=== PATIENT | female | born 1990 | race Caucasian/White ===

== ENCOUNTER 2020-02-12 07:01 | Inpatient (IN) | payer OTHER ==
[2020-02-12] MEDS ORDERED: Misoprostol 50 MCG (1/2 of 100 MCG) Tab VAG ONE ×2 (08:03→12:30)
[2020-02-12] MEDS ORDERED: Calcium Carbonate 500 MG Tab.Chew PO PRN (08:48)
[2020-02-12] MEDS ORDERED: Sodium Chloride 0.9% 10 ML Syringe FLUSH PRN (08:48)
[2020-02-12] MEDS ORDERED: Ondansetron 4 MG/2 ML SDV IV PRN (08:48)
--- NOTE | 2020-02-12 09:05 | PCM.LDHP ---
L&D History of Present Illness - General Date of Service: 02/12/20 Admit Problem/Dx: Patient Status Order with Admit Dx/Problem 02/12/20 08:48 Patient Status [ADT] Routine Admission Diagnosis/Problem Admission Diagnosis/Problem Term Source of Information: Patient History Limitations: Reports: No Limitations - History of Present Illness Introduction:: 02/12/20 Netta is a 29 yo who is 38 0/7 weeks here for induction of labor. She is being induced for possible cholestasis in . She began having i tching on the soles of her feet, abdomen, and her hands in January. She has needed to take Vistaril every night to sleep. She only has itching at night but it wakes her up. With this continued symptom we have decided to induce for the risk of cholestasis. She has had normal BPP's and NST's. The only other complication in is that there is a 2 vessel cord. She is GBS negative, O positive, all STI's are negative. They are anticipating a boy. 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: 1 LMP (Approximate): Musculoskeletal History: Reports: None Other Musculoskeletal History: Hx: bunyon foot removed - Infectious Disease History Infectious Disease History: Reports: C-Difficile - Past Surgical History Musculoskeletal Surgical History: Reports: None Dermatological Surgical History: Reports: None Social & Family History - Family History Family Medical History: No Pertinent Family History - Tobacco Use Tobacco Use Status *Q: Never Tobacco User Second Hand Smoke Exposure: No - Caffeine Use Caffeine Use: Reports: Coffee, Soda - Recreational Drug Use Recreational Drug Use: No H&P Review of Systems - Review of Systems: Review Of Systems: See Below General: Reports: No Symptoms HEENT: Reports: No Symptoms Pulmonary: Reports: No Symptoms Cardiovascular: Reports: No Symptoms Gastrointestinal: Reports: No Symptoms Genitourinary: Reports: No Symptoms Musculoskeletal: Reports: No Symptoms Skin: Reports: No Symptoms Psychiatric: Reports: No Symptoms Neurological: Reports: No Symptoms Hematologic/Lymphatic: Reports: No Symptoms Immunologic: Reports: No Symptoms L&D Exam - Exam Exam: See Below - Vital Signs Vital Signs: Last Vital Signs Temp 35.5 C L 02/12/20 08:14 Pulse 92 02/12/20 07:24 Resp 18 02/12/20 07:24 BP 118/74 02/12/20 07:24 Pulse Ox 97 02/12/20 07:24 Weight: 80.286 kg - OB Specific Contraction Intensity: intermittent Movement: Active Heart Tones: Present Heart Tones per Min: 135 Heart Rate (FHR) Variability: Moderate (6-25 bmp) Presentation: Vertex Estimated Weight: 7.5 lbs - Willis Score Willis Score Cervix Position: Midposition Willis Score Consistency: Soft Willis Score Effacement: 31-50% Willis Score Dilation: 1-2 cm Willis Score 's Station: -2 Willis Score Total: 6 - Exam General: Alert, Oriented HEENT: PERRLA, Conjunctiva Clear, Hearing Intact, Mucosa Moist & [place], Nares Patent, Normal Nasal Septum, Posterior Pharynx Clear, Pupils Equal, Pupils Reactive Neck: Supple, Trachea Midline Lungs: Clear to Auscultation, Normal Respiratory Effort Cardiovascular: Regular Rate, Regular Rhythm GI/Abdominal Exam: Normal Bowel Sounds, Soft, Non-Tender, No Organomegaly, No Distention, No Abnormal Bruit, No Mass, Pelvis Stable Rectal Exam: Normal Exam, Normal Rectal Tone Genitourinary: Normal external exam, Normal bimanual exam, Cervical dilitation. No: Vaginal bleeding Back Exam: Normal Inspection, Full Range of Motion Extremities: Normal Inspection, Normal Range of Motion, Non-Tender, No Pedal Edema, Normal Capillary Refill Skin: Warm, Dry, Intact Neurological: Cranial Nerves Intact, Reflexes Equal Bilateral Psychiatric: Alert, Normal Affect, Normal Mood - Patient Data Lab Results Last 24 hrs: Laboratory Results - last 24 hr 02/12/20 02/12/20 02/12/20 Range/Units 07:12 07:12 07:21 WBC 10.0 (4.5-11.0) K/uL RBC 4.07 (3.30-5.50) M/uL Hgb 12.7 (12.0-15.0) g/dL Hct 37.7 (36.0-48.0) % MCV 93 (80-98) fL MCH 31 (27-31) pg MCHC 34 (32-36) % Plt Count 163 (150-400) K/uL Neut % (Auto) 82 H (36-66) % Lymph % (Auto) 10 L (24-44) % [place] % (Auto) 7 H (2-6) % Eos % (Auto) 1 L (2-4) % Baso % (Auto) 0 (0-1) % Urine Color Yellow (YELLOW) Urine Appearance Clear (CLEAR) Urine pH 7.0 (5.0-8.0) Ur Specific [place] 1.020 (1.008-1.030) Urine Protein Negative (NEGATIVE) mg/dL Urine Glucose (UA) Negative (NEGATIVE) mg/dL Urine Ketones Negative (NEGATIVE) mg/dL Urine Occult Blood Negative (NEGATIVE) Urine Nitrite Negative (NEGATIVE) Urine Bilirubin Negative (NEGATIVE) Urine Urobilinogen 0.2 (0.2-1.0) EU/dL Ur Leukocyte Esterase Negative (NEGATIVE) Urine RBC 0-5 (0-5) Urine WBC 0-5 (0-5) Ur Epithelial Cells Rare Amorphous Sediment Few Urine Bacteria Rare Urine Mucus Not seen Urine Opiates Screen Negative (NEGATIVE) Ur Oxycodone Screen Negative (NEGATIVE) Urine Methadone Screen Negative (NEGATIVE) Ur Propoxyphene Screen Negative (NEGATIVE) Ur Barbiturates Screen Negative (NEGATIVE) Ur Tricyclics Screen Negative (NEGATIVE) Ur Phencyclidine Scrn Negative (NEGATIVE) Ur Amphetamine Screen Negative (NEGATIVE) U Methamphetamines Scrn Negative (NEGATIVE) Urine MDMA Screen Negative (NEGATIVE) U Benzodiazepines Scrn Negative (NEGATIVE) U Cocaine Metab Screen Negative (NEGATIVE) U Marijuana (THC) Screen Negative (NEGATIVE) Result Diagrams: 02/12/20 07:21 - Problem List (1) Cholestasis during in third trimester SNOMED Code(s): 970551079 ICD Code: O26.613 - LIVER AND BILIARY TRACT DISORD IN , THIRD TRIMESTER; K83.1 - OBSTRUCTION OF BILE DUCT Status: Acute Current Visit: Yes (2) Term SNOMED Code(s): 72830794 ICD Code: Z34.90 - ENCNTR FOR SUPRVSN OF NORMAL , UNSP, UNSP TRIMESTER Status: Acute Current Visit: Yes (3) Two vessel umbilical cord in [place] , antepartum SNOMED Code(s): 868733203, 986082712 ICD Code: O09.899 - SUPERVISION OF OTHER HIGH RISK PREGNANCIES, UNSP TRIMESTER Status: Acute Current Visit: Yes Problem List Initiated/Reviewed/Updated: Yes Orders Last 24hrs: Active Orders 24 hr Category Date Time Status Patient Status [ADT] Routine ADT 02/12/20 08:48 Ordered Communication Order [RC] ASDIRECTED Care 02/12/20 08:48 Ordered Heart Tones [RC] PER UNIT ROUTINE Care 02/12/20 08:48 Ordered Non Stress Test [RC] Click to Edit Care 02/12/20 08:48 Ordered Notify Provider Vital Signs [RC] PRN Care 02/12/20 08:54 Ordered Notify Provider [RC] PRN Care 02/12/20 08:48 Ordered Up ad Yelena [RC] ASDIRECTED Care 02/12/20 08:48 Ordered VTE/DVT Education [RC] Click to Edit Care 02/12/20 08:54 Ordered Vital Signs [RC] PER UNIT ROUTINE Care 02/12/20 08:48 Ordered Regular Diet [DIET] Diet 02/12/20 Breakfast Ordered COMPREHENSIVE METABOLIC PN,CMP [CHEM] Routine Lab 02/12/20 08:48 Ordered DRUG SCREEN, URINE [URCHEM] Routine Lab 02/12/20 07:12 Ordered UA W/MICROSCOPIC [URIN] Routine Lab 02/12/20 07:12 Ordered Calcium Carbonate [Tums] Med 02/12/20 08:48 Ordered 1,000 mg PO Q2HR PRN Ondansetron [Zofran] Med 02/12/20 08:48 Ordered 4 mg IV Q4H PRN Sodium Chloride 0.9% [Saline Flush] Med 02/12/20 08:48 Ordered 10 ml FLUSH ASDIRECTED PRN DVT/VTE Prophylaxis Reflex [OM.PC] Routine Oth 02/12/20 08:48 Ordered Saline Lock Insert [OM.PC] Routine Oth 02/12/20 08:48 Ordered Resuscitation Status Routine Resus Stat 02/12/20 08:48 Ordered Medication Orders Calcium Carbonate/Glycine (Tums) 1,000 mg PO Q2HR PRN PRN Reason: Indigestion Ondansetron HCl (Zofran) 4 mg IV Q4H PRN PRN Reason: Nausea/Vomiting Sodium Chloride (Saline Flush) 10 ml FLUSH ASDIRECTED PRN PRN Reason: Keep Vein Open Assessment/Plan Comment:: 02/12/20 Assessment: here for induction of labor for possible cholestasis in with normal labs, BPP's, and NST's SVE /-2 2 vessel umbilical cord Reactive NST Plan: 50 mcg cytotec placed this am for cervical ripening Recheck around lunch or sooner if things change Anticipate
--- NOTE | 2020-02-12 12:48 | PCM.PNLD ---
Labor Progress Note - VS & Meds Vital Signs: Last Vital Signs Temp 35.6 C L 02/12/20 10:21 Pulse 92 02/12/20 10:21 Resp 18 02/12/20 10:21 BP 126/69 02/12/20 10:21 Pulse Ox 97 02/12/20 10:21 Active Medications: Current Medications Calcium Carbonate/Glycine (Tums) 1,000 mg PO Q2H PRN PRN Reason: Indigestion Ondansetron HCl (Zofran) 4 mg IV Q4H PRN PRN Reason: Nausea/Vomiting Sodium Chloride (Saline Flush) 10 ml FLUSH ASDIRECTED PRN PRN Reason: Keep Vein Open Discontinued Medications Misoprostol (Cytotec) 50 mcg VAG ONETIME ONE Stop: 02/12/20 08:04 Last Admin: 02/12/20 08:06 Dose: 50 mcg Documented by: Misoprostol (Cytotec) 50 mcg VAG ONETIME ONE Stop: 02/12/20 12:31 Last Admin: 02/12/20 12:39 Dose: 50 mcg Documented by: - Uterine Contractions Uterine Monitoring Mode: External [place] Contraction Frequency (min): 4-8 Contraction Duration (sec): 40-90 Contraction Intensity: Mild to Moderate Uterine Resting Tone: Soft - Monitoring Monitor Mode: External Ultrasound Heart Rate (FHR) Baseline: 135 Heart Rate (FHR) Variability: Moderate (6-25 bmp) Accelerations: Present, 15x15 Decelerations: None Strip Review: Category I - Vaginal Exam Dilation (cm): 1.5-2 Effacement (Percent): 50 Station: -2 Cervical Position: Midposition Sterile Vaginal Exam Performed By: Lois Traylor Vaginal Exam Comment: "thinner" - Labor Progress (Free Text) Labor Progress: 02/12/20 Patient feeling mild contractions, denies pain. Contractions are 4-8 min apart and are moderate to palpation. Category 1 tracing. SVE 1.5-2/50/-2 so there was some change. 50 mcg cytotec inserted vaginally again during check. Plan for pain control includes an epidural once she is in active labor. Anticipate .
--- NOTE | 2020-02-12 16:34 | PCM.PNLD ---
Labor Progress Note - VS & Meds Vital Signs: Last Vital Signs Temp 35.6 C L 02/12/20 15:12 Pulse 80 02/12/20 15:12 Resp 18 02/12/20 15:12 BP 130/70 02/12/20 15:12 Pulse Ox 97 02/12/20 15:12 Active Medications: Current Medications Calcium Carbonate/Glycine (Tums) 1,000 mg PO Q2H PRN PRN Reason: Indigestion Ondansetron HCl (Zofran) 4 mg IV Q4H PRN PRN Reason: Nausea/Vomiting Sodium Chloride (Saline Flush) 10 ml FLUSH ASDIRECTED PRN PRN Reason: Keep Vein Open Discontinued Medications Misoprostol (Cytotec) 50 mcg VAG ONETIME ONE Stop: 02/12/20 08:04 Last Admin: 02/12/20 08:13 Dose: 50 mcg Documented by: Misoprostol (Cytotec) 50 mcg VAG ONETIME ONE Stop: 02/12/20 12:31 Last Admin: 02/12/20 12:39 Dose: 50 mcg Documented by: - Uterine Contractions Uterine Monitoring Mode: External [place] Contraction Frequency (min): 1.5 Contraction Duration (sec): 40-70 Contraction Intensity: Moderate to Strong Uterine Resting Tone: Soft - Monitoring Monitor Mode: External Ultrasound Heart Rate (FHR) Baseline: 135 Heart Rate (FHR) Variability: Moderate (6-25 bmp) Accelerations: Present, 15x15 Decelerations: None Strip Review: Category I - Vaginal Exam Dilation (cm): 3 Effacement (Percent): 70 Station: -2 Cervical Position: Midposition Sterile Vaginal Exam Performed By: Lois Traylor - Labor Progress (Free Text) Labor Progress: 02/12/20 SVE 3/70/-2, head more engaged. Contraction pattern is about every 1.5 min, moderate, she is breathing through them but still reports being comfortable and does not want epidural yet. She has been very active walking in the halls and sitting in the tub which has been great pain relief. I am not going to do any intervention as of now. If contractions space out >3 min apart consider starting pitocin. Consider AROM if she gets to be 4-5 cm. Category 1 tracing.
[2020-02-12] MEDS ORDERED: Lactated Ringers 1,000 ML IV SCH (18:00)
--- NOTE | 2020-02-12 18:08 | PCM.PNLD ---
Labor Progress Note - VS & Meds Vital Signs: Last Vital Signs Temp 35.6 C L 02/12/20 16:26 Pulse 84 02/12/20 16:26 Resp 18 02/12/20 16:26 BP 130/83 02/12/20 16:26 Pulse Ox 99 02/12/20 16:26 Active Medications: Current Medications Calcium Carbonate/Glycine (Tums) 1,000 mg PO Q2H PRN PRN Reason: Indigestion Oxytocin/Sodium Chloride (Pitocin In Ns 20 Units/1,000 Ml) 20 unit in 1,000 mls @ 6 mls/hr IV TITRATE ROLAN; Protocol Lactated Ringer's (Ringers, Lactated) 1,000 mls @ 999 mls/hr IV ASDIRECTED ROLAN Last Admin: 02/12/20 17:55 Dose: 999 mls/hr Documented by: Ondansetron HCl (Zofran) 4 mg IV Q4H PRN PRN Reason: Nausea/Vomiting Sodium Chloride (Saline Flush) 10 ml FLUSH ASDIRECTED PRN PRN Reason: Keep Vein Open Discontinued Medications Misoprostol (Cytotec) 50 mcg VAG ONETIME ONE Stop: 02/12/20 08:04 Last Admin: 02/12/20 08:13 Dose: 50 mcg Documented by: Misoprostol (Cytotec) 50 mcg VAG ONETIME ONE Stop: 02/12/20 12:31 Last Admin: 02/12/20 12:39 Dose: 50 mcg Documented by: - Uterine Contractions Uterine Monitoring Mode: External [place] Contraction Frequency (min): 1 Contraction Duration (sec): 60 Contraction Intensity: Moderate to Strong Uterine Resting Tone: Soft - Monitoring Monitor Mode: External Ultrasound Heart Rate (FHR) Baseline: 135 Heart Rate (FHR) Variability: Moderate (6-25 bmp) Accelerations: Present, 15x15 Decelerations: None Strip Review: Category I - Vaginal Exam Dilation (cm): 3.5 Effacement (Percent): 70 Station: -2 Cervical Position: Midposition Sterile Vaginal Exam Performed By: Lois Traylor - Labor Progress (Free Text) Labor Progress: 02/12/20 SVE 3.5/70/-2. Contractions have gotten very intense for Netta and she is requesting an epidural. There have been no additional medications given to augment labor since the cytotec around lunch time today. She is getting in the tub now for pain relief while her fluid bolus infuses. Category 1 tracing continues. Consider AROM after she is comfortable.
[2020-02-12] MEDS ORDERED: ePHEDrine 50 MG/ML SDV ONE (18:23)
[2020-02-12] MEDS ORDERED: Ropivacaine 100 ML ONE (19:01)
--- NOTE | 2020-02-12 19:37 | PCM.PNLD ---
Labor Progress Note - VS & Meds Vital Signs: Last Vital Signs Temp 35.5 C L 02/12/20 18:32 Pulse 98 02/12/20 18:53 Resp 18 02/12/20 18:53 BP 144/73 H 02/12/20 18:53 Pulse Ox 98 02/12/20 18:53 Active Medications: Current Medications Calcium Carbonate/Glycine (Tums) 1,000 mg PO Q2H PRN PRN Reason: Indigestion Oxytocin/Sodium Chloride (Pitocin In Ns 20 Units/1,000 Ml) 20 unit in 1,000 mls @ 6 mls/hr IV TITRATE ROLAN; Protocol Lactated Ringer's (Ringers, Lactated) 1,000 mls @ 999 mls/hr IV ASDIRECTED ROLAN Last Admin: 02/12/20 17:55 Dose: 999 mls/hr Documented by: Ondansetron HCl (Zofran) 4 mg IV Q4H PRN PRN Reason: Nausea/Vomiting Sodium Chloride (Saline Flush) 10 ml FLUSH ASDIRECTED PRN PRN Reason: Keep Vein Open Discontinued Medications Ephedrine Sulfate (Ephedrine Sulfate) Confirm Administered Dose 50 mg .ROUTE .STK-MED ONE Stop: 02/12/20 18:24 Ropivacaine (Naropin 0.2%) Confirm Administered Dose 100 mls @ as directed .ROUTE .STK-MED ONE Stop: 02/12/20 19:02 Misoprostol (Cytotec) 50 mcg VAG ONETIME ONE Stop: 02/12/20 08:04 Last Admin: 02/12/20 08:13 Dose: 50 mcg Documented by: Misoprostol (Cytotec) 50 mcg VAG ONETIME ONE Stop: 02/12/20 12:31 Last Admin: 02/12/20 12:39 Dose: 50 mcg Documented by: - Uterine Contractions Uterine Monitoring Mode: External [place] Contraction Frequency (min): 1.5-2.5 Contraction Duration (sec): 70 Contraction Intensity: Strong Uterine Resting Tone: Soft - Monitoring Monitor Mode: External Ultrasound Heart Rate (FHR) Baseline: 135 Heart Rate (FHR) Variability: Moderate (6-25 bmp) Accelerations: Present, 15x15 Decelerations: None, Variable (x 1 right after AROM) Strip Review: Category I - Vaginal Exam Dilation (cm): 4 Effacement (Percent): 70 Station: -2 Cervical Position: Midposition Sterile Vaginal Exam Performed By: Lois Traylor - Labor Progress (Free Text) Labor Progress: 02/12/20 Patient is comfortable with epidural in place. Peanut ball in place now. Category 1 tracing. AROM completed with moderate to large amount of clear fluid. SVE now /-2. Continue to monitor for progress and rotate on peanut ball. Encouraging rest now.
[2020-02-12] MEDS ORDERED: Acetaminophen 325 MG Tab, 50 Tab Bulk Bottle PO PRN ×2 (19:42→22:50)
[2020-02-12] MEDS ORDERED: Acetaminophen 325 MG Tab PO PRN (19:43)
[2020-02-12] MEDS ORDERED: fentaNYL 100 MCG/2 ML SDV ONE (21:36)
--- NOTE | 2020-02-12 22:24 | ANES ---
DATE OF SERVICE: 02/12/2020 I was called janeth for a young lady who already had a labor epidural that I had done at approximately 6:30 this evening and with having increased discomfort specifically in her left lower side. I was at the bedside. The patient was uncomfortable, but did not seem to be severely uncomfortable, so the epidural was working a little bit according to what the patient had said, but the last hours progressively, worn off. I decided to re-bolus the patient, so I gave the patient 8 mL of 0.2% ropivacaine mixed with 100 mcg of fentanyl via the epidural and we will continue to keep a close eye on the patient to make sure that that works, and that she is hopefully getting some relief again. Did discuss with the patient that those hot spot sometimes will persist, with the only way of getting rid of them is to take the epidural out and start over. We will hopefully get her taken care of nicely janeth and get her on her way. Sukhdeep Nielsen CRNA /[id number]
--- NOTE | 2020-02-12 22:39 | ANES ---
DATE OF SERVICE: 02/12/2020 INDICATIONS: I was called this evening by the OB Department for a young lady requesting a labor epidural. The patient is in for a labor induction. This is her 2nd baby. Platelet count was noted to be 163. I was at the bedside at approximately 1835 this evening. Brief history and physical was done with the patient. The patient stated that she has had a normal , has no abnormal bleeding issues, and is not currently on any blood thinners for any reason. Risks and benefits were reviewed with the patient, patient verbalizes her understanding, wishes to proceed with the labor epidural at this time. TECHNIQUE: The patient was then sat at the edge of the bed. Betadine prep x3 to the lumbar region was done. Sterile drape was placed. 1% lidocaine skin wheal and deep was done. A 17-gauge Tuohy needle was inserted at approximately the L4-L5 position. Loss of resistance was easily achieved at approximately 6 cm. Catheter was then easily threaded through the Touhy needle and the Tuohy needle was withdrawn and the catheter was pulled back and secured at approximately 14 cm. The patient tolerated that without difficulty. I then proceeded to give the patient a 4 mL bolus of the test dose and the patient was then laid into supine position with left uterine displacement and the head of bed slightly elevated. Several minutes after the test dose was done, the patient showed no signs of subarachnoid block or intravascular injection of local anesthetic. I then proceeded to give the patient 12 mL bolus of 0.2% ropivacaine via the epidural and started her on a 0.2% ropivacaine drip at 12 mL an hour. The patient tolerated the bolus without difficulty. Please refer to the nurse's notes for vital signs. Prior to leaving, the patient was stating that she was starting to feel some relief from her contractions and stated she was feeling better overall. We will be available as needed for the patient. Sukhdeep Nielsen CRNA /[id number]
[2020-02-12] MEDS ORDERED: Benzocaine 20% Top Spray 56 GM Bottle TOP PRN (22:47)
[2020-02-12] MEDS ORDERED: Lanolin 100% Cream 40 GM Tube TOP PRN (22:47)
[2020-02-12] MEDS ORDERED: Ibuprofen 200 MG Tab, 24 Tab Bulk Bottle PO PRN (22:50)
[2020-02-12] MEDS: Witch Hazel Medicated Pads 100/Jar TOP PRN (22:58)
--- NOTE | 2020-02-12 23:00 | PCM.DEL ---
L & D Note - General Info Date of Service: 02/12/20 Mother's Due Date: 02/26/20 - Delivery Note Labor: Augmented by ARM, Augmented by Oxytocin Cervical Ripening Method: Misoprostil Delivery Outcome: Livebirth Infant Delivery Method: Spontaneous Vaginal Delivery-Single Delivery Mode: Spontaneous Presentation: Vertex Nuchal Cord: None Anesthesia Type: Epidural Amniotic Fluid Description: Clear Episiotomy Type: None Laceration: 1st Degree, Labial (right labial), Perineal Suture type: Vicryl Suture size: 3-0 Placenta: Intact, Spontaneous Cord: 2 Vessels Estimated Blood Loss: 350 Resuscitation Needed: No : Bulb Syringe Provider: Lois Traylor Score 1 min: 9 Score 5 min: 9 Second Stage Interventions: Reports: Second Nurse Assessed Progress of Descent, Second Nurse Reviewed Contraction Pattern, Second Nurse Reviewed Heart Tones, Encouragement Given, Pushing Effectively Delivery Comments (Free Text/Narrative):: 02/12/20 29 yo G3 now P2 delivered viable male infant, normal spontaneous delivery at 2219. She was induced for possible cholestasis in with normal labs. There was a 2 vessel cord during but she was seen in [facility] and had normal level 2 ultrasound and normal ECHO. She was cervical ripened this morning with cytotec vaginally x 2 doses. Eventually she was augmented with AROM and then low dose pitocin. She received an epidural in labor. She dilated very quickly in the end and had the spontaneous urge to push. She pushed very well and delivered a baby boy in SARA position with a left hand presentation. There was no nuchal cord. He was immediately placed on her chest and bulb suctioned. He cried spontaneously and scores were 9, 9. Delayed cord clamping completed for 1 minute. Placenta delivered intact spontaneously with a 2 vessel cord. Pitocin given for 3rd stage management. She did have a right labial tear that was tacked with 3-0 vicryl. There is also a first degree perineal laceration that is not bleeding and is left to heal by secondary intention. There are no cervical or vaginal lacerations. FF and light to moderate. EBL 350 ml. Mother and baby are stable skin to skin. Stages of labor: 1: 9710-5861 2: 5591-2229 3: 4721-0458 Induction Criteria - Willis Score Willis Score Dilation: 1-2 cm Willis Score Effacement: 40-50% Willis Score Infant's Station: -2 Willis Score Consistency: Soft Willis Score Cervix Position: Midposition Willis Score Total: 6 Willis Score Presenting Part: Reports: Cephalic - Induction Gestational Age >/= 39 wks: No Medical Indication: Possible Cholestasis in Estimated Pelvis: Reports: Adequate Reassuring Monitoring Strip: Yes Absence of Tachy Systole: Yes - Augmentation Estimated Pelvis: Reports: Adequate Weight Estimated:: Reports: AGA Reassuring Monitoring Strip: Yes Absence of Tachy Systole: Yes - General Info Date of Service: 02/12/20 Functional Status: Reports: Pain Controlled - Review of Systems General: Reports: No Symptoms HEENT: Reports: No Symptoms Pulmonary: Reports: No Symptoms Cardiovascular: Reports: No Symptoms Gastrointestinal: Reports: No Symptoms Genitourinary: Reports: No Symptoms Musculoskeletal: Reports: No Symptoms Skin: Reports: No Symptoms Neurological: Reports: No Symptoms Psychiatric: Reports: No Symptoms - Patient Data Vitals - Most Recent: Last Vital Signs Temp 35.2 C L 02/12/20 19:30 Pulse 68 02/12/20 21:20 Resp 18 02/12/20 21:20 BP 129/66 02/12/20 21:20 Pulse Ox 98 02/12/20 21:20 Weight - Most Recent: 80.286 kg I&O - Last 24 Hours: Intake & Output 02/12/20 02/12/20 02/12/20 06:59 14:59 22:59 Intake Total 1240 120 Balance 1240 120 Lab Results Last 24 Hours: Laboratory Results - last 24 hr 02/12/20 02/12/20 02/12/20 Range/Units 07:12 07:12 07:21 WBC 10.0 (4.5-11.0) K/uL RBC 4.07 (3.30-5.50) M/uL Hgb 12.7 (12.0-15.0) g/dL Hct 37.7 (36.0-48.0) % MCV 93 (80-98) fL MCH 31 (27-31) pg MCHC 34 (32-36) % Plt Count 163 (150-400) K/uL Neut % (Auto) 82 H (36-66) % Lymph % (Auto) 10 L (24-44) % [place] % (Auto) 7 H (2-6) % Eos % (Auto) 1 L (2-4) % Baso % (Auto) 0 (0-1) % Sodium (140-148) mmol/L Potassium (3.6-5.2) mmol/L Chloride (100-108) mmol/L Carbon Dioxide (21-32) mmol/L Anion Gap (5.0-14.0) mmol/L BUN (7-18) mg/dL Creatinine (0.6-1.0) mg/dL Est Cr Clr Drug Dosing mL/min Estimated GFR (MDRD) (>60) Glucose (74-106) mg/dL Calcium (8.5-10.1) mg/dL Total Bilirubin (0.2-1.0) mg/dL AST (15-37) U/L ALT (12-78) U/L Alkaline Phosphatase (46-116) U/L Total Protein (6.4-8.2) g/dL Albumin (3.4-5.0) g/dL Globulin (2.3-3.5) g/dL Albumin/Globulin Ratio (1.2-2.2) Urine Color Yellow (YELLOW) Urine Appearance Clear (CLEAR) Urine pH 7.0 (5.0-8.0) Ur Specific [place] 1.020 (1.008-1.030) Urine Protein Negative (NEGATIVE) mg/dL Urine Glucose (UA) Negative (NEGATIVE) mg/dL Urine Ketones Negative (NEGATIVE) mg/dL Urine Occult Blood Negative (NEGATIVE) Urine Nitrite Negative (NEGATIVE) Urine Bilirubin Negative (NEGATIVE) Urine Urobilinogen 0.2 (0.2-1.0) EU/dL Ur Leukocyte Esterase Negative (NEGATIVE) Urine RBC 0-5 (0-5) Urine WBC 0-5 (0-5) Ur Epithelial Cells Rare Amorphous Sediment Few Urine Bacteria Rare Urine Mucus Not seen Urine Opiates Screen Negative (NEGATIVE) Ur Oxycodone Screen Negative (NEGATIVE) Urine Methadone Screen Negative (NEGATIVE) Ur Propoxyphene Screen Negative (NEGATIVE) Ur Barbiturates Screen Negative (NEGATIVE) Ur Tricyclics Screen Negative (NEGATIVE) Ur Phencyclidine Scrn Negative (NEGATIVE) Ur Amphetamine Screen Negative (NEGATIVE) U Methamphetamines Scrn Negative (NEGATIVE) Urine MDMA Screen Negative (NEGATIVE) U Benzodiazepines Scrn Negative (NEGATIVE) U Cocaine Metab Screen Negative (NEGATIVE) U Marijuana (THC) Screen Negative (NEGATIVE) 02/12/20 Range/Units 07:21 WBC (4.5-11.0) K/uL RBC (3.30-5.50) M/uL Hgb (12.0-15.0) g/dL Hct (36.0-48.0) % MCV (80-98) fL MCH (27-31) pg MCHC (32-36) % Plt Count (150-400) K/uL Neut % (Auto) (36-66) % Lymph % (Auto) (24-44) % [place] % (Auto) (2-6) % Eos % (Auto) (2-4) % Baso % (Auto) (0-1) % Sodium 138 L (140-148) mmol/L Potassium 3.5 L (3.6-5.2) mmol/L Chloride 101 (100-108) mmol/L Carbon Dioxide 25 (21-32) mmol/L Anion Gap 15.5 H (5.0-14.0) mmol/L BUN 8 (7-18) mg/dL Creatinine 0.7 (0.6-1.0) mg/dL Est Cr Clr Drug Dosing 115.32 mL/min Estimated GFR (MDRD) > 60 (>60) Glucose 72 L (74-106) mg/dL Calcium 8.3 L (8.5-10.1) mg/dL Total Bilirubin 0.4 (0.2-1.0) mg/dL AST 23 (15-37) U/L ALT 30 (12-78) U/L Alkaline Phosphatase 132 H (46-116) U/L Total Protein 6.0 L (6.4-8.2) g/dL Albumin 2.8 L (3.4-5.0) g/dL Globulin 3.2 (2.3-3.5) g/dL Albumin/Globulin Ratio 0.9 L (1.2-2.2) Urine Color (YELLOW) Urine Appearance (CLEAR) Urine pH (5.0-8.0) Ur Specific [place] (1.008-1.030) Urine Protein (NEGATIVE) mg/dL Urine Glucose (UA) (NEGATIVE) mg/dL Urine Ketones (NEGATIVE) mg/dL Urine Occult Blood (NEGATIVE) Urine Nitrite (NEGATIVE) Urine Bilirubin (NEGATIVE) Urine Urobilinogen (0.2-1.0) EU/dL Ur Leukocyte Esterase (NEGATIVE) Urine RBC (0-5) Urine WBC (0-5) Ur Epithelial Cells Amorphous Sediment Urine Bacteria Urine Mucus Urine Opiates Screen (NEGATIVE) Ur Oxycodone Screen (NEGATIVE) Urine Methadone Screen (NEGATIVE) Ur Propoxyphene Screen (NEGATIVE) Ur Barbiturates Screen (NEGATIVE) Ur Tricyclics Screen (NEGATIVE) Ur Phencyclidine Scrn (NEGATIVE) Ur Amphetamine Screen (NEGATIVE) U Methamphetamines Scrn (NEGATIVE) Urine MDMA Screen (NEGATIVE) U Benzodiazepines Scrn (NEGATIVE) U Cocaine Metab Screen (NEGATIVE) U Marijuana (THC) Screen (NEGATIVE) Med Orders - Current: Current Medications Acetaminophen (Tylenol Bulk Bottle) 0 mg PO Q4H PRN PRN Reason: Pain Benzocaine (Xcgd-I-Txemzxw 20% [place]) 0 gm TOP Q4H PRN PRN Reason: Perineal Comfort Measure Calcium Carbonate/Glycine (Tums) 1,000 mg PO Q2H PRN PRN Reason: Indigestion Emollient Ointment (Lansinoh Hpa) 1 gm TOP ASDIRECTED PRN PRN Reason: Sore Nipples Oxytocin/Sodium Chloride (Pitocin In Ns 20 Units/1,000 Ml) 20 unit in 1,000 mls @ 6 mls/hr IV TITRATE ROLAN; Protocol Last Admin: 02/12/20 20:52 Dose: 2 munits/min, 6 mls/hr Documented by: Lactated Ringer's (Ringers, Lactated) 1,000 mls @ 999 mls/hr IV ASDIRECTED ROLAN Last Admin: 02/12/20 17:55 Dose: 999 mls/hr Documented by: Ibuprofen (Motrin Bulk Bottle) 600 mg PO Q6H PRN PRN Reason: Pain Ondansetron HCl (Zofran) 4 mg IV Q4H PRN PRN Reason: Nausea/Vomiting Sodium Chloride (Saline Flush) 10 ml FLUSH ASDIRECTED PRN PRN Reason: Keep Vein Open [place] (Tucks) 1 pad TOP ASDIRECTED PRN PRN Reason: Hemorrhoids Discontinued Medications Acetaminophen (Tylenol Bulk Bottle) 650 mg PO Q4H PRN PRN Reason: Pain Acetaminophen (Tylenol) 650 mg PO Q4H PRN PRN Reason: Pain (mild 1-3) Last Admin: 02/12/20 19:55 Dose: 650 mg Documented by: Ephedrine Sulfate (Ephedrine Sulfate) Confirm Administered Dose 50 mg .ROUTE .STK-MED ONE Stop: 02/12/20 18:24 Fentanyl (Sublimaze) Confirm Administered Dose 100 mcg .ROUTE .STK-MED ONE Stop: 02/12/20 21:37 Ropivacaine (Naropin 0.2%) Confirm Administered Dose 100 mls @ as directed .ROUTE .STK-MED ONE Stop: 02/12/20 19:02 Misoprostol (Cytotec) 50 mcg VAG ONETIME ONE Stop: 02/12/20 08:04 Last Admin: 02/12/20 08:13 Dose: 50 mcg Documented by: Misoprostol (Cytotec) 50 mcg VAG ONETIME ONE Stop: 02/12/20 12:31 Last Admin: 02/12/20 12:39 Dose: 50 mcg Documented by: - Exam General: Alert, Oriented HEENT: Pupils Equal, Pupils Reactive, Mucous Membr. Moist/[place] Neck: Supple Lungs: Clear to Auscultation, Normal Respiratory Effort Cardiovascular: Regular Rate, Regular Rhythm GI/Abdominal Exam: Normal Bowel Sounds, Soft, Non-Tender, No Distention, No Mass, Pelvis Stable (Female) Exam: Normal External Exam, Normal Bimanual Exam, Enlarged Uterus, Vaginal Bleeding. No: Cervical Lesions, Vaginal Tears Back Exam: Normal Inspection, Full Range of Motion Extremities: Normal Inspection, Normal Range of Motion, Non-Tender, No Pedal Edema, Normal Capillary Refill Skin: Warm, Dry, Intact Neurological: No New Focal Deficit Psy/Mental Status: Alert, Normal Affect, Normal Mood - Problem List & Annotations (1) Cholestasis during in third trimester SNOMED Code(s): 148703253 Code(s): O26.613 - LIVER AND BILIARY TRACT DISORD IN , THIRD TRIMESTER; K83.1 - OBSTRUCTION OF BILE DUCT Status: Acute Current Visit: Yes (2) Term SNOMED Code(s): 55158612 Code(s): Z34.90 - ENCNTR FOR SUPRVSN OF NORMAL , UNSP, UNSP TRIMESTER Status: Acute Current Visit: Yes (3) Two vessel umbilical cord in toussaint , antepartum SNOMED Code(s): 251447762, 378249616 Code(s): O09.899 - SUPERVISION OF OTHER HIGH RISK PREGNANCIES, UNSP TRIMESTER Status: Acute Current Visit: Yes (4) (normal spontaneous vaginal delivery) SNOMED Code(s): 59495165, 384463099 Code(s): O80 - ENCOUNTER FOR FULL-TERM UNCOMPLICATED DELIVERY Status: Acute Current Visit: Yes (5) Labial tear SNOMED Code(s): 940304267 Code(s): S31.41XA - LACERATION W/O FOREIGN BODY OF VAGINA AND VULVA, INIT ENCNTR Status: Acute Current Visit: Yes (6) First degree perineal laceration SNOMED Code(s): 24509115 Code(s): O70.0 - FIRST DEGREE PERINEAL LACERATION DURING DELIVERY Status: Acute Current Visit: Yes - Problem List Review Problem List Initiated/Reviewed/Updated: Yes - My Orders Last 24 Hours: My Active Orders 02/12/20 07:12 DRUG SCREEN, URINE [URCHEM] Routine UA W/MICROSCOPIC [URIN] Routine 02/12/20 Breakfast Regular Diet [DIET] 02/12/20 08:48 Patient Status [ADT] Routine Communication Order [RC] ASDIRECTED Heart Tones [RC] PER UNIT ROUTINE Non Stress Test [RC] Click to Edit Notify Provider [RC] PRN Up ad Yelena [RC] ASDIRECTED Vital Signs [RC] PER UNIT ROUTINE Calcium Carbonate [Tums] 1,000 mg PO Q2H PRN Ondansetron [Zofran] 4 mg IV Q4H PRN Sodium Chloride 0.9% [Saline Flush] 10 ml FLUSH ASDIRECTED PRN DVT/VTE Prophylaxis Reflex [OM.PC] Routine Saline Lock Insert [OM.PC] Routine Resuscitation Status Routine 02/12/20 08:54 Notify Provider Vital Signs [RC] PRN VTE/DVT Education [RC] Click to Edit 02/12/20 16:45 Oxytocin/Normal Saline [Pitocin in NS 20 Units/1,000 ML] 20 unit in 1,000 ml IV TITRATE 02/12/20 18:00 Lactated Ringers [Ringers, Lactated] 1,000 ml IV ASDIRECTED 02/12/20 18:41 PCEA Epidural [RC] ASDIRECTED Epidural Catheter Management [OM.PC] Stat 02/12/20 22:47 Consult to Refinery [employer] [CONS] Routine Benzocaine [Ssit-Q-Qecpwys 20% [place]] See Dose Instructions TOP Q4H PRN Lanolin [Lansinoh HPA] 1 gm TOP ASDIRECTED PRN witch [place] [Tucks] 1 pad TOP ASDIRECTED PRN Assess Lochia [WOMSER] Per Unit Routine Assess Uterine Involution [WOMSER] Per Unit Routine 02/12/20 22:48 Patient Status [ADT] Routine Vital Signs [RC] PFP Ice Therapy [OM.PC] Per Unit Routine Perineal Care [OM.PC] Per Unit Routine Sitz Bath [OM.PC] Per Unit Routine 02/12/20 22:50 Acetaminophen [Tylenol Bulk Bottle] See Dose Instructions PO Q4H PRN Ibuprofen [Motrin Bulk Bottle] 600 mg PO Q6H PRN 02/13/20 05:11 CBC WITH AUTO DIFF [HEME] AM - Assessment Assessment:: 02/12/20 29 yo delivered male at 38 0/7 weeks Right labial tear repaired with interrupted sutures First degree perineal laceration, not repaired FF and bleeding controlled Mother in stable condition Skin to skin and initiating - Plan Plan:: 02/12/20 Assessment: here for induction of labor for possible cholestasis in with normal labs, BPP's, and NST's SVE /-2 2 vessel umbilical cord Reactive NST Plan: 50 mcg cytotec placed this am for cervical ripening Recheck around lunch or sooner if things change Anticipate 02/12/20 Routine cares support Perineal care Anticipate 24-48 hour stay
--- NOTE | 2020-02-13 09:46 | PCM.PNPP ---
- General Info Date of Service: 02/13/20 Functional Status: Reports: Pain Controlled - Review of Systems General: Reports: No Symptoms HEENT: Reports: No Symptoms Pulmonary: Reports: No Symptoms Cardiovascular: Reports: No Symptoms Gastrointestinal: Reports: No Symptoms Genitourinary: Reports: No Symptoms Musculoskeletal: Reports: No Symptoms Skin: Reports: No Symptoms Neurological: Reports: No Symptoms Psychiatric: Reports: No Symptoms - Patient Data Vital Signs - Most Recent: Last Vital Signs Temp 36.6 C 02/13/20 06:36 Pulse 81 02/13/20 06:36 Resp 18 02/13/20 06:36 BP 119/63 02/13/20 06:36 Pulse Ox 99 02/13/20 06:36 Weight - Most Recent: 80.286 kg I&O - Last 24 Hours: Intake & Output 02/12/20 02/13/20 02/13/20 22:59 06:59 14:59 Intake Total 120 1998 Balance 120 1998 Lab Results - Last 24 Hours: Laboratory Results - last 24 hr 02/13/20 Range/Units 06:29 WBC 12.4 H (4.5-11.0) K/uL RBC 3.56 (3.30-5.50) M/uL Hgb 11.2 L (12.0-15.0) g/dL Hct 33.2 L (36.0-48.0) % MCV 93 (80-98) fL MCH 32 H (27-31) pg MCHC 34 (32-36) % Plt Count 144 L (150-400) K/uL Neut % (Auto) 83 H (36-66) % Lymph % (Auto) 8 L (24-44) % [place] % (Auto) 7 H (2-6) % Eos % (Auto) 2 (2-4) % Baso % (Auto) 0 (0-1) % Med Orders - Current: Current Medications Acetaminophen (Tylenol Bulk Bottle) 325 - 650 mg PO Q4H PRN PRN Reason: Pain Last Admin: 02/12/20 22:58 Dose: 650 mg Documented by: Benzocaine (Ybph-O-Dcmidcu 20% [place]) 0 gm TOP Q4H PRN PRN Reason: Perineal Comfort Measure Last Admin: 02/12/20 22:58 Dose: 1 spray Documented by: Calcium Carbonate/Glycine (Tums) 1,000 mg PO Q2H PRN PRN Reason: Indigestion Emollient Ointment (Lansinoh Hpa) 1 gm TOP ASDIRECTED PRN PRN Reason: Sore Nipples Last Admin: 02/12/20 22:58 Dose: 1 applic Documented by: Oxytocin/Sodium Chloride (Pitocin In Ns 20 Units/1,000 Ml) 20 unit in 1,000 mls @ 6 mls/hr IV TITRATE ROLAN; Protocol Last Admin: 02/12/20 20:52 Dose: 2 munits/min, 6 mls/hr Documented by: Lactated Ringer's (Ringers, Lactated) 1,000 mls @ 999 mls/hr IV ASDIRECTED ROLAN Last Admin: 02/12/20 17:55 Dose: 999 mls/hr Documented by: Ibuprofen (Motrin Bulk Bottle) 600 mg PO Q6H PRN PRN Reason: Pain Last Admin: 02/12/20 22:57 Dose: 600 mg Documented by: Ondansetron HCl (Zofran) 4 mg IV Q4H PRN PRN Reason: Nausea/Vomiting Sodium Chloride (Saline Flush) 10 ml FLUSH ASDIRECTED PRN PRN Reason: Keep Vein Open Witch [place] (Tucks) 1 pad TOP ASDIRECTED PRN PRN Reason: Hemorrhoids Last Admin: 02/12/20 22:58 Dose: 1 pad Documented by: Discontinued Medications Acetaminophen (Tylenol Bulk Bottle) 650 mg PO Q4H PRN PRN Reason: Pain Acetaminophen (Tylenol) 650 mg PO Q4H PRN PRN Reason: Pain (mild 1-3) Last Admin: 02/12/20 19:55 Dose: 650 mg Documented by: Ephedrine Sulfate (Ephedrine Sulfate) Confirm Administered Dose 50 mg .ROUTE .STK-MED ONE Stop: 02/12/20 18:24 Last Admin: 02/12/20 23:24 Dose: Not Given Documented by: Fentanyl (Sublimaze) Confirm Administered Dose 100 mcg .ROUTE .STK-MED ONE Stop: 02/12/20 21:37 Ropivacaine (Naropin 0.2%) Confirm Administered Dose 100 mls @ as directed .ROUTE .STK-MED ONE Stop: 02/12/20 19:02 Misoprostol (Cytotec) 50 mcg VAG ONETIME ONE Stop: 02/12/20 08:04 Last Admin: 02/12/20 08:13 Dose: 50 mcg Documented by: Misoprostol (Cytotec) 50 mcg VAG ONETIME ONE Stop: 02/12/20 12:31 Last Admin: 02/12/20 12:39 Dose: 50 mcg Documented by: - Infant Interaction Disposition, : in Room with Family Interaction: Holding Infant Infant Feeding: Breastfed ; Nursed Well Support Person: - Recovery Exam Fundal Tone: Firm Fundal Level: 2 Fingerbreadths Below Umbilicus Fundal Placement: Midline Lochia Amount: Small Lochia Color: Rubra/Red Perineum Description: Edematous Episiotomy/Laceration: Approximated Bladder Status: Nonpalpable Urinary Elimination: Voided Other Urinary Elimination, : due to void - Exam General: Alert, Oriented HEENT: Pupils Equal Neck: Supple Lungs: Clear to Auscultation, Normal Respiratory Effort Cardiovascular: Regular Rate, Regular Rhythm GI/Abdominal Exam: Normal Bowel Sounds, Soft, Non-Tender, No Distention, No Mass, Pelvis Stable Extremities: Normal Inspection, Normal Range of Motion, Non-Tender, No Pedal Edema, Normal Capillary Refill Skin: Warm, Dry, Intact Neurological: No New Focal Deficit Psy/Mental Status: Alert, Normal Affect, Normal Mood - Problem List & Annotations (1) Cholestasis during in third trimester SNOMED Code(s): 421612096 Code(s): O26.613 - LIVER AND BILIARY TRACT DISORD IN , THIRD TRIMESTER; K83.1 - OBSTRUCTION OF BILE DUCT Status: Acute Current Visit: Yes (2) Term SNOMED Code(s): 66604544 Code(s): Z34.90 - ENCNTR FOR SUPRVSN OF NORMAL , UNSP, UNSP TRIMESTER Status: Acute Current Visit: Yes (3) Two vessel umbilical cord in [place]saint , antepartum SNOMED Code(s): 608669996, 151575519 Code(s): O09.899 - SUPERVISION OF OTHER HIGH RISK PREGNANCIES, UNSP TRIMESTER Status: Acute Current Visit: Yes (4) (normal spontaneous vaginal delivery) SNOMED Code(s): 20599624, 624878975 Code(s): O80 - ENCOUNTER FOR FULL-TERM UNCOMPLICATED DELIVERY Status: Acute Current Visit: Yes (5) Labial tear SNOMED Code(s): 995637349 Code(s): S31.41XA - LACERATION W/O FOREIGN BODY OF VAGINA AND VULVA, INIT ENCNTR Status: Acute Current Visit: Yes (6) First degree perineal laceration SNOMED Code(s): 75266210 Code(s): O70.0 - FIRST DEGREE PERINEAL LACERATION DURING DELIVERY Status: Acute Current Visit: Yes - Problem List Review Problem List Initiated/Reviewed/Updated: Yes - My Orders Last 24 Hours: My Active Orders 02/12/20 08:48 Patient Status [ADT] Routine Communication Order [RC] ASDIRECTED Notify Provider [RC] PRN Up ad Yelena [RC] ASDIRECTED Vital Signs [RC] PER UNIT ROUTINE Calcium Carbonate [Tums] 1,000 mg PO Q2H PRN Ondansetron [Zofran] 4 mg IV Q4H PRN Sodium Chloride 0.9% [Saline Flush] 10 ml FLUSH ASDIRECTED PRN DVT/VTE Prophylaxis Reflex [OM.PC] Routine Saline Lock Insert [OM.PC] Routine Resuscitation Status Routine 02/12/20 08:54 Notify Provider Vital Signs [RC] PRN VTE/DVT Education [RC] Click to Edit 02/12/20 16:45 Oxytocin/Normal Saline [Pitocin in NS 20 Units/1,000 ML] 20 unit in 1,000 ml IV TITRATE 02/12/20 18:00 Lactated Ringers [Ringers, Lactated] 1,000 ml IV ASDIRECTED 02/12/20 18:41 Epidural Catheter Management [OM.PC] Stat 02/12/20 22:47 Consult to Coater Helper [CONS] Routine Benzocaine [Fzqn-Y-Orkzvom 20% [place]] See Dose Instructions TOP Q4H PRN Lanolin [Lansinoh HPA] 1 gm TOP ASDIRECTED PRN witch [place] [Tucks] 1 pad TOP ASDIRECTED PRN Assess Lochia [WOMSER] Per Unit Routine Assess Uterine Involution [WOMSER] Per Unit Routine 02/12/20 22:48 Patient Status [ADT] Routine Ice Therapy [OM.PC] Per Unit Routine Perineal Care [OM.PC] Per Unit Routine Sitz Bath [OM.PC] Per Unit Routine 02/12/20 22:50 Acetaminophen [Tylenol Bulk Bottle] 325 - 650 mg PO Q4H PRN Ibuprofen [Motrin Bulk Bottle] 600 mg PO Q6H PRN - Assessment Assessment:: 02/12/20 29 yo delivered male infant at 38 0/7 weeks Right labial tear repaired with interrupted sutures First degree perineal laceration, not repaired FF and bleeding controlled Mother in stable condition Skin to skin and initiating 02/13/20 PP day 1 without complications FF and bleeding light fair to well No perineal pain, some swelling but labial repair is well approximated Hgb 11.2 - Plan Plan:: 02/12/20 Assessment: here for induction of labor for possible cholestasis in with normal labs, BPP's, and NST's SVE /-2 2 vessel umbilical cord Reactive NST Plan: 50 mcg cytotec placed this am for cervical ripening Recheck around lunch or sooner if things change Anticipate 02/12/20 Routine cares support Perineal care Anticipate 24-48 hour stay 02/13/20 Routine cares support Perineal care Anticipate discharge home tomorrow if mom and baby both stable
[2020-02-13] MEDS: Docusate Sodium 100 MG Cap PO PRN (10:38)
[2020-02-13] MEDS: Fluticasone Propionate Nasal Spray 16 GM Bottle NASBOTH SCH (13:08)
[2020-02-14] MEDS: Docusate Sodium 100 MG Cap PO PRN (07:54)
[2020-02-14] MEDS: Fluticasone Propionate Nasal Spray 16 GM Bottle NASBOTH SCH (08:01)
--- NOTE | 2020-02-14 08:47 | PCM.PNPP ---
- General Info Date of Service: 02/14/20 Functional Status: Reports: Pain Controlled - Review of Systems General: Reports: No Symptoms HEENT: Reports: No Symptoms Pulmonary: Reports: No Symptoms Cardiovascular: Reports: No Symptoms Gastrointestinal: Reports: No Symptoms Genitourinary: Reports: No Symptoms Musculoskeletal: Reports: No Symptoms Skin: Reports: No Symptoms Neurological: Reports: No Symptoms Psychiatric: Reports: No Symptoms - General Info Date of Service: 02/14/20 - Patient Data Vital Signs - Most Recent: Last Vital Signs Temp 36.3 C 02/14/20 07:54 Pulse 80 02/14/20 07:54 Resp 16 02/14/20 07:54 BP 123/71 02/14/20 07:54 Pulse Ox 99 02/14/20 07:54 Weight - Most Recent: 80.286 kg Med Orders - Current: Current Medications Acetaminophen (Tylenol Bulk Bottle) 325 - 650 mg PO Q4H PRN PRN Reason: Pain Last Admin: 02/12/20 22:58 Dose: 650 mg Documented by: Benzocaine (Hifo-D-Agszapj 20% [place]) 0 gm TOP Q4H PRN PRN Reason: Perineal Comfort Measure Last Admin: 02/12/20 22:58 Dose: 1 spray Documented by: Calcium Carbonate/Glycine (Tums) 1,000 mg PO Q2H PRN PRN Reason: Indigestion Docusate Sodium (Colace) 200 mg PO DAILY PRN PRN Reason: Constipation Last Admin: 02/14/20 07:54 Dose: 200 mg Documented by: Emollient Ointment (Lansinoh Hpa) 1 gm TOP ASDIRECTED PRN PRN Reason: Sore Nipples Last Admin: 02/12/20 22:58 Dose: 1 applic Documented by: Fluticasone Propionate (Flonase) 0 gm NASBOTH DAILY ROLAN Last Admin: 02/14/20 08:01 Dose: 2 spray Documented by: Oxytocin/Sodium Chloride (Pitocin In Ns 20 Units/1,000 Ml) 20 unit in 1,000 mls @ 6 mls/hr IV TITRATE ROLAN; Protocol Last Admin: 02/12/20 20:52 Dose: 2 munits/min, 6 mls/hr Documented by: Lactated Ringer's (Ringers, Lactated) 1,000 mls @ 999 mls/hr IV ASDIRECTED ROLAN Last Admin: 02/12/20 17:55 Dose: 999 mls/hr Documented by: Ibuprofen (Motrin Bulk Bottle) 600 mg PO Q6H PRN PRN Reason: Pain Last Admin: 02/12/20 22:57 Dose: 600 mg Documented by: Ondansetron HCl (Zofran) 4 mg IV Q4H PRN PRN Reason: Nausea/Vomiting Sodium Chloride (Saline Flush) 10 ml FLUSH ASDIRECTED PRN PRN Reason: Keep Vein Open [place] (Tucks) 1 pad TOP ASDIRECTED PRN PRN Reason: Hemorrhoids Last Admin: 02/12/20 22:58 Dose: 1 pad Documented by: Discontinued Medications Acetaminophen (Tylenol Bulk Bottle) 650 mg PO Q4H PRN PRN Reason: Pain Acetaminophen (Tylenol) 650 mg PO Q4H PRN PRN Reason: Pain (mild 1-3) Last Admin: 02/12/20 19:55 Dose: 650 mg Documented by: Ephedrine Sulfate (Ephedrine Sulfate) Confirm Administered Dose 50 mg .ROUTE .STK-MED ONE Stop: 02/12/20 18:24 Last Admin: 02/12/20 23:24 Dose: Not Given Documented by: Fentanyl (Sublimaze) Confirm Administered Dose 100 mcg .ROUTE .STK-MED ONE Stop: 02/12/20 21:37 Ropivacaine (Naropin 0.2%) Confirm Administered Dose 100 mls @ as directed .ROUTE .STK-MED ONE Stop: 02/12/20 19:02 Misoprostol (Cytotec) 50 mcg VAG ONETIME ONE Stop: 02/12/20 08:04 Last Admin: 02/12/20 08:13 Dose: 50 mcg Documented by: Misoprostol (Cytotec) 50 mcg VAG ONETIME ONE Stop: 02/12/20 12:31 Last Admin: 02/12/20 12:39 Dose: 50 mcg Documented by: - Interaction Disposition, : in Room with Family Infant Interaction: Holding Feeding: Breastfed Infant; Nursed Well Support Person: - Recovery Exam Fundal Tone: Firm Fundal Level: 3 Fingerbreadths Below Umbilicus Fundal Placement: Midline Lochia Amount: Small Lochia Color: Rubra/Red Perineum Description: Edematous Episiotomy/Laceration: Approximated Bladder Status: Voiding Urinary Elimination: Voided Other Urinary Elimination, : due to void - Exam General: Alert, Oriented HEENT: Pupils Equal, Pupils Reactive, Mucous Membr. Moist/[place] Neck: Supple Lungs: Clear to Auscultation, Normal Respiratory Effort Cardiovascular: Regular Rate, Regular Rhythm GI/Abdominal Exam: Normal Bowel Sounds, Soft, Non-Tender, No Distention, No Mass, Pelvis Stable Extremities: Normal Inspection, Normal Range of Motion, Non-Tender, No Pedal Edema, Normal Capillary Refill Skin: Warm, Dry, Intact Neurological: No New Focal Deficit Psy/Mental Status: Alert, Normal Affect, Normal Mood - Problem List & Annotations (1) Cholestasis during in third trimester SNOMED Code(s): 161023038 Code(s): O26.613 - LIVER AND BILIARY TRACT DISORD IN , THIRD TRIMESTER; K83.1 - OBSTRUCTION OF BILE DUCT Status: Acute Current Visit: Yes (2) Term SNOMED Code(s): 99851651 Code(s): Z34.90 - ENCNTR FOR SUPRVSN OF NORMAL , UNSP, UNSP TRIMESTER Status: Acute Current Visit: Yes (3) Two vessel umbilical cord in [place] , antepartum SNOMED Code(s): 526043651, 532355684 Code(s): O09.899 - SUPERVISION OF OTHER HIGH RISK PREGNANCIES, UNSP TRIMESTER Status: Acute Current Visit: Yes (4) (normal spontaneous vaginal delivery) SNOMED Code(s): 73967446, 708880788 Code(s): O80 - ENCOUNTER FOR FULL-TERM UNCOMPLICATED DELIVERY Status: Acute Current Visit: Yes (5) Labial tear SNOMED Code(s): 085088368 Code(s): S31.41XA - LACERATION W/O FOREIGN BODY OF VAGINA AND VULVA, INIT ENCNTR Status: Acute Current Visit: Yes (6) First degree perineal laceration SNOMED Code(s): 67406843 Code(s): O70.0 - FIRST DEGREE PERINEAL LACERATION DURING DELIVERY Status: Acute Current Visit: Yes - Problem List Review Problem List Initiated/Reviewed/Updated: Yes - My Orders Last 24 Hours: My Active Orders 02/13/20 10:31 Docusate Sodium [Colace] 200 mg PO DAILY PRN 02/13/20 10:42 Discontinue Saline Lock [Peripheral IV Discontinue] [OM.PC] Routine 02/13/20 13:00 Fluticasone Propionate [Flonase] 0 gm NASBOTH DAILY - Assessment Assessment:: 02/12/20 29 yo delivered male infant at 38 0/7 weeks Right labial tear repaired with interrupted sutures First degree perineal laceration, not repaired FF and bleeding controlled Mother in stable condition Skin to skin and initiating 02/13/20 PP day 1 without complications FF and bleeding light fair to well No perineal pain, some swelling but labial repair is well approximated Hgb 11.2 02/14/20 PP day 2 without complications FF and bleeding slowing down well Pain controlled Ready for discharge home - Plan Plan:: 02/12/20 Assessment: here for induction of labor for possible cholestasis in with normal labs, BPP's, and NST's SVE /-2 2 vessel umbilical cord Reactive NST Plan: 50 mcg cytotec placed this am for cervical ripening Recheck around lunch or sooner if things change Anticipate 02/12/20 Routine cares support Perineal care Anticipate 24-48 hour stay 02/13/20 Routine cares support Perineal care Anticipate discharge home tomorrow if mom and baby both stable 02/14/20 Routine cares and support Discharge home today with baby and 6 week check 2 week and pp depression screen as well
[2020-02-14] MEDS: Witch Hazel Medicated Pads 100/Jar TOP PRN (10:17)
== END 2020-02-14 13:00 | disposition home or self-care (01) | DRG 805 ==
LOC: JP.OB 07:01 → OBSVTOIN 22:19 → JP.OB 22:19 → JP.MS 22:20
PROVIDERS: ADMIT Advanced Practice Midwife; ATTEND Advanced Practice Midwife
PROC: 10E0XZZ Delivery of Products of Conception, External Approach (ICD-10-PCS; principal; 2020-02-12)
PROC: 10907ZC Drainage of Amniotic Fluid, Therapeutic from Products of Conception, Via Natural or Artificial Opening (ICD-10-PCS; 2020-02-12)
PROC: 3E0P7VZ Introduction of Hormone into Female Reproductive, Via Natural or Artificial Opening (ICD-10-PCS; 2020-02-12)
PROC: 0HQ9XZZ Repair Perineum Skin, External Approach (ICD-10-PCS; 2020-02-12)
PROC: 3E0R3BZ Introduction of Anesthetic Agent into Spinal Canal, Percutaneous Approach (ICD-10-PCS; 2020-02-12)
PROC: 4A1HXCZ Monitoring of Products of Conception, Cardiac Rate, External Approach (ICD-10-PCS; 2020-02-12)
PROC: 00HU33Z Insertion of Infusion Device into Spinal Canal, Percutaneous Approach (ICD-10-PCS; 2020-02-12)
DX: O26.62 Liver and biliary tract disorders in childbirth (principal); K83.1 Obstruction of bile duct; Z37.0 Single live birth; Z3A.38 38 weeks gestation of pregnancy; O70.0 First degree perineal laceration during delivery
CPT/HCPCS: 36415; 51702; 59409; 80053; 80305-QW; 81001; 85025; 99211; A9270-GY; J2590; J2795; J3010; J7120